=== PATIENT | female | born 1990 ===

== ENCOUNTER 2021-08-29 05:15 | Inpatient (IN) ==
[~2021-08-29 05:15] MED LIST: *HR* Nalbuphine 10 MG/ML AMPUL IV PRN; Famotidine 20 MG/2 ML VIAL IVP PRN; Lidocaine 1% 20 ML MDV INFILT PRN; Metoclopramide 10 MG/2 ML VIAL IVP PRN; Naloxone 0.4 MG/ML INJ IVP PRN; Ondansetron 4 MG/2 ML VIAL IVP PRN
[2021-08-29] MEDS ORDERED: Ringers Solution, Lactated 1,000 ML ONE (05:16)
[2021-08-29] MEDS ORDERED: Penicillin G Potassium 5,000,000 UNIT in 0.9 % Sodium Chloride Mini Bag 100 ML IVPB ONE (05:17)
[2021-08-29] MEDS: Ringers Solution, Lactated 1,000 ML IVC SCH ×2 (05:45→11:38)
[2021-08-29 06:34] LABS: Basophils % 0.1 %; Eosinophils # 0.1 K/mcL (0.0-0.6); Eosinophils % 0.4 %; Hematocrit 30.6 % (35.3-44.9); Hemoglobin 9.3 g/dL (11.5-15.4); Immature Granulocytes % 1.2 % (0-4); Lymphocytes # 1.7 K/mcL (0.6-4.6); Lymphocytes % 12.2 %; Mean Corpuscular HGB Conc 30.4 g/dL (31.6-35.5); Mean Corpuscular Volume 72.5 fL (83.0-100.0); Mean Platelet Volume 11.1 fL (9.4-12.4); Monocytes # 0.6 K/mcL (0.0-1.3); Monocytes % 4.1 %; Neutrophils # 11.1 K/mcL (1.6-8.9); Nucleated Red Blood Cells 0.1 /100 WBC (0); Platelet Count 253 K/mcL (140-400); Red Blood Count 4.22 M/mcL (3.82-4.97); White Blood Count 13.6 K/mcL (4.3-11.1)
[2021-08-29 06:38] LABS: Influenza A PCR Negative (Negative); Influenza B PCR Negative (Negative); Resp. Syncytial Virus PCR Negative (Negative)
[2021-08-29 06:47] LABS: SARS-CoV-2 by PCR (In House) Negative (Negative)
[2021-08-29] MEDS ORDERED: EPHEDrine 50 MG/ML VIAL IVP PRN (06:59)
[2021-08-29] MEDS ORDERED: Epidural Premix (fent/bupiv) 110 ML EP SCH (07:00)
[2021-08-29 09:41] LABS: Amphetamine Screen,Urine Negative ng/mL (Cutoff=1000); Barbiturate Screen,Urine Negative ng/mL (Cutoff=200); Benzodiazepines Screen,Urine Negative ng/mL (Cutoff=200); Cannabinoid Screen,Urine Negative ng/mL (Cutoff = 50); Cocaine Screen,Urine Negative ng/mL (Cutoff= 300); Opiate Screen,Urine Negative ng/mL (Cutoff=300); Phencyclidine Screen,Urine Negative ng/mL (Cutoff=25)
[2021-08-29] MEDS ORDERED: Penicillin G Potassium 2,500,000 UNIT/105 ML MLS IVPB SCH (10:00)
[2021-08-29] MEDS ORDERED: Methylergonovine 0.2 MG/ML AMPUL IM ONE ×2 (11:00→13:06)
[2021-08-29] MEDS ORDERED: Ropivacaine/PF 0.2% 20 ML VIAL EP ONE (11:07)
[2021-08-29] MEDS ORDERED: *HR* FentaNYL (PF) 100 MCG/2 ML VIAL EP ONE (11:07)
[2021-08-29] MEDS ORDERED: Bupivacaine-MPF 0.25% 10 ML VIAL ONE (11:09)
[2021-08-29] MEDS ORDERED: Ibuprofen 600 MG TABLET PO PRN (13:06)
[2021-08-29] MEDS ORDERED: Oxytocin 20 units/ LR 1000 mL 20 UNIT/1,000 ML BAG IVC ONE (14:48)
[2021-08-29] MEDS ORDERED: Oxytocin 20 units/ LR 1000 mL 20 UNIT/1,000 ML BAG IVC SCH (15:56)
[2021-08-29] MEDS ORDERED: *HR* OxyCODONE Immed Rel 5 MG TABLET PO PRN (15:56)
[2021-08-29] MEDS ORDERED: Measles/Mumps/Rubella Vacc 0.5 ML VIAL SQ PRN (15:56)
[2021-08-29] MEDS ORDERED: Rho Immune Globulin 1,500 UNIT SYRINGE IM PRN (15:56)
[2021-08-29] MEDS ORDERED: Ondansetron ODT 4 MG TAB.RAPDIS SL PRN (15:56)
[2021-08-29] MEDS ORDERED: Benzocaine/Menthol 56 GM AEROSOL SPRAY TP PRN (15:56)
[2021-08-29] MEDS ORDERED: Lanolin 7 G OINT...G. TP PRN (15:56)
[2021-08-29] MEDS: Ibuprofen 600 MG TABLET PO SCH (17:43)
[2021-08-29] MEDS: Acetaminophen 325 MG TABLET PO SCH (17:44)
[2021-08-30 05:45] VITALS: O2SAT 97
[2021-08-30] MEDS: Prenatal Vit/FA 1 EACH TABLET PO SCH (07:52)
[2021-08-30] MEDS: Acetaminophen 325 MG TABLET PO SCH (21:03)
[2021-08-30] MEDS: Ibuprofen 600 MG TABLET PO SCH (21:03)
[2021-08-30 21:31] VITALS: BP 107/74; PULSE 102; TEMP 97.8
[2021-08-31] MEDS: Prenatal Vit/FA 1 EACH TABLET PO SCH (09:11)
== END 2021-08-31 11:01 | disposition home or self-care (01) | DRG 807 ==
LOC: 1NENULAB → 1NENUOBS 15:55
PROVIDERS: ADMIT Registered Nurse; ATTEND Registered Nurse